=== PATIENT | female | born 1990 | race Caucasian/White ===

== ENCOUNTER 2022-04-28 19:45 | Emergency (ER) | payer SELFPAY ==
[~2022-04-28] VITALS: Ht 165.1 cm; Wt 68.0 kg
[2022-04-28 19:51] VITALS: BP 142/86
== END 2022-04-28 22:10 | disposition left against medical advice (07) ==
LOC: ER 19:45
DX: Z53.21 Procedure and treatment not carried out due to patient leaving prior to being seen by health care provider (principal)

== ENCOUNTER 2023-10-17 04:53 | Emergency (ER) | payer SELFPAY ==
[~2023-10-17] VITALS: Ht 165.1 cm; Wt 65.0 kg
[2023-10-17 04:56] VITALS: BP 146/85; PULSE 102; RESP 16; TEMP 98.5; O2SAT 99
== END 2023-10-17 08:19 | disposition left against medical advice (07) ==
LOC: ER 05:07
DX: Z53.21 Procedure and treatment not carried out due to patient leaving prior to being seen by health care provider (principal)
CPT/HCPCS: 99281; Z7610